=== PATIENT | male | born 1970 | race Caucasian/White ===

== ENCOUNTER 2020-04-11 08:57 | Emergency (ER) | payer MEDICAID, OTHER ==
[~2020-04-11] VITALS: Ht 180.3 cm; Wt 98.0 kg
[~2020-04-11 08:57] MED LIST: TRAZ-251; WELLBUTRIN
[2020-04-11] MEDS ORDERED: LIDOCAINE HCL 1% 20ML VIAL (Pyxis) INJ INFIL ONE (10:15)
[2020-04-11] MEDS ORDERED: DOXYCYCLINE HYCLATE 100MG CAPSULE PO ONE (10:15)
[2020-04-11] MEDS ORDERED: AMOXICILLIN/POTASSIUM CLAVULANATE 875/125MG TAB PO ONE (10:15)
[2020-04-11] MEDS ORDERED: CEFTRIAXONE SODIUM 1 G/VIAL IM ONE (10:15)
[2020-04-11 11:00] VITALS: BP 128/88
== END 2020-04-11 11:25 | disposition home or self-care (01) ==
LOC: ER 08:57
DX: L02.414 Cutaneous abscess of left upper limb (principal); L03.114 Cellulitis of left upper limb; Z86.19 Personal history of other infectious and parasitic diseases; Z98.890 Other specified postprocedural states
CPT/HCPCS: 96372; 99283; J0696; J3490